=== PATIENT | female | born 1965 | race Two or more races ===

== ENCOUNTER → 2017-02-08 | Outpatient (CLI) | payer MEDICAID, OTHER ==
[~2017-02-08] VITALS: Ht 152.4 cm; Wt 65.8 kg
== END | disposition home or self-care (01) ==
LOC: Rad HDHVI 08:24
PROVIDERS: ATTEND Internal Medicine Cardiovascular Disease
DX: I63.9 Cerebral infarction, unspecified (principal); Z82.49 Family history of ischemic heart disease and other diseases of the circulatory system
CPT/HCPCS: 78452; 93017; 93306; 96374; A9500

== ENCOUNTER 2017-11-21 14:53 | Emergency (ER) | payer MEDICAID ==
[~2017-11-21] VITALS: Ht 154.9 cm; Wt 68.0 kg
[2017-11-21 14:59] VITALS: BP 136/87
== END 2017-11-21 20:40 | disposition left against medical advice (07) ==
LOC: ER 14:53 → EDBD 14:53 → ER 17:03
DX: R53.1 Weakness (principal); Z53.21 Procedure and treatment not carried out due to patient leaving prior to being seen by health care provider
CPT/HCPCS: 93005